=== PATIENT | female | born 1950 | race Two or more races ===

== ENCOUNTER → 2017-03-20 | Day surgery (SDC) | payer OTHER ==
--- NOTE | 2017-03-21 10:29 | SPEC ---
DATE OF OPERATION: 03/20/2017 PREOPERATIVE DIAGNOSIS: Abnormal left mammography. POSTOPERATIVE DIAGNOSIS: Abnormal left mammography. PROCEDURE PERFORMED: Left breast stereotactic needle biopsy with clip. SURGEON: Hilaria Montgomery MD ANESTHESIA: Local. COMPLICATIONS: None. DISPOSITION: Stable at the end of the procedure. INDICATIONS FOR PROCEDURE: The patient underwent a routine screening mammography that noted a cluster of microcalcifications in the left subareolar breast. My recommendation was for a needle biopsy. The procedure was discussed with her and all of her questions answered. DESCRIPTION OF PROCEDURE: The patient was brought to [facility] [place] and laid prone on the OR table. Using a lateral approach, the calcifications in the subareolar left breast were identified. A sterile prep was obtained. A target was chosen. There was a positive stroke margin. Using Betadine and 1% lidocaine, a [employer] device was used to take several cores from this area. Specimen radiograph showed the cores with calcifications. A clip was applied on the area. Hemostasis was assured with direct pressure. Steri-Strips were used to close the incision. She tolerated the procedure well and left the breast imaging center in good condition. HILARIA MONTGOMERY M.D. [id number]
--- NOTE | 2017-03-21 16:02 | PATH ---
Surgical Pathology Report Patient Name: BROCK MARQUEZ [facility]. Rec. #: [id number] /Age/Gender: 1950 (Age: 66) / F Account: [id number] Location: [facility] Taken: 03/20/2017 Received: 03/20/2017 Reported: 03/21/2017 Physicians: Hilaria Fernandez M.D. Specimen(s) Received A: LEFT BREAST SPECIMEN WITH CALCIFICATIONS B: LEFT BREAST SPECIMEN WITHOUT CALCIFICATIONS Clinical History Mammographic findings: Microcalcification, suspicious Final Diagnosis A. BREAST, LEFT, WITH CALCIFICATIONS, STEREOTACTIC BIOPSY: DUCTAL CARCINOMA IN SITU (DCIS), SOLID AND CRIBRIFORM TYPE, INTERMEDIATE NUCLEAR GRADE WITH MODERATE NECROSIS AND ASSOCIATED CALCIFICATIONS. B. BREAST, LEFT, WITHOUT CALCIFICATIONS, STITCH AT BIOPSY: FOCAL DCIS, INTERMEDIATE NUCLEAR GRADE WITH ASSOCIATED NECROSIS. Results of ER and KS studies will be reported separately in addendum. Electronically Signed Geetha Joel M.D. Addendum Reported: 03/22/2017 Addendum Diagnosis Results of ER and KS studies performed on block A at [facility] are as follows: ER (clone [id number] mouse monoclonal antibody by Leica): 100 % nuclear staining with strong intensity (Positive). KS (clone16 mouse monoclonal antibody by Leica): ~20 % nuclear staining with moderate to weak intensity (Positive). Positive and negative controls (internal if applicable) show appropriate results. Formalin fixation and cold ischemic times are within current ASCO/CAP recommendations for ER, KS and Her2 testing. Geetha Joel M.D. Gross Description A. Received in formalin labeled "left breast with calcification," are 4 rosario-yellow, cylindrical portions of fibroadipose tissue ranging from 2.1-2.5 cm in length and averaging 0.3 cm in diameter. The specimens are submitted in toto in one cassette. B. Received in formalin labeled "left breast without calcifications," are 4 rosario-yellow, cylindrical portions of fibroadipose tissue ranging from 1.2-2.2 cm in length and averaging 0.2 cm in diameter. The specimens are submitted in toto in one cassette. Time to formalin fixation: 5 minutes Total formalin fixation time: approximately 8 hours. 03/20/201703/20/2017
== END | disposition home or self-care (01) ==
LOC: FMAMMOTONE 08:51
PROVIDERS: ATTEND Surgery
PROC: 0HBU3ZX Excision of Left Breast, Percutaneous Approach, Diagnostic (ICD-10-PCS; principal; 2017-03-20)
DX: D05.12 Intraductal carcinoma in situ of left breast (principal); N64.1 Fat necrosis of breast; N64.89 Other specified disorders of breast
CPT/HCPCS: 19081; 88305-TC; 88342-TC

== ENCOUNTER 2017-05-06 04:56 | Day surgery (SDC) | payer OTHER ==
[2017-05-03 08:57] VITALS: BMI 24.7
[2017-05-06] MEDS ORDERED: MIDAZOLAM HCL 2 MG/2 ML SINGLE DOSE VIAL ONE ×3 (11:30→12:03)
[2017-05-06] MEDS ORDERED: ceFAZolin SODIUM 1 GM VIAL IVPB ONE (12:00)
[2017-05-06] MEDS ORDERED: KETOROLAC TROMETHAMINE 30 MG/1 ML VIAL ONE (12:00)
[2017-05-06] MEDS ORDERED: ceFAZolin SODIUM 1 GM VIAL ONE (12:00)
[2017-05-06] MEDS ORDERED: LIDOCAINE HCL 1%, 10 MG/ML (20ML VIAL) INF ONE (12:06)
[2017-05-06] MEDS ORDERED: ONDANSETRON 4 MG/2 ML VIAL IVPUSH PRN (12:41)
[2017-05-06] MEDS ORDERED: oxyCODONE HCL 5 MG TABLET PO PRN (12:41)
[2017-05-06] MEDS ORDERED: PROMETHAZINE HCL 25 MG/1 ML VIAL IVPUSH PRN (12:41)
--- NOTE | 2017-05-06 12:41 | HP ---
History & Physical Update - History History: No Change - Physical Physical: No Change - Assessment Assessment: No Change - Plan Plan: No Change
[2017-05-06] MEDS ORDERED: LACTATED RINGERS SOLUTION 1,000 ML IV SCH (12:45)
[2017-05-06 15:12] VITALS: TEMP 97.8
[2017-05-06 17:31] VITALS: BP 122/70; PULSE 71
--- NOTE | 2017-05-06 21:44 | OP ---
DATE OF OPERATION: 05/06/2017 PREOPERATIVE DIAGNOSIS: Left breast ductal carcinoma in situ. POSTOPERATIVE DIAGNOSIS: Left breast ductal carcinoma in situ. PROCEDURE: Left breast wide localized lumpectomy. SURGEON: Hilaria Fernandez MD ANESTHESIA: Local and IV sedation. ESTIMATED BLOOD LOSS: Minimal. COMPLICATIONS: None. This was a sterile procedure. INDICATION FOR PROCEDURE: Patient had a needle biopsy that revealed DCIS. My recommendation was a lumpectomy. The procedure was discussed and all of her questions answered. PROCEDURE IN DETAIL: Patient was brought to [facility] in [place] and taken down to Breast Imaging where a wire was used to localize a clip in the upper, slightly retroareolar left breast. She was then brought into the operating room, and after IV sedation and IV antibiotics, the left breast was prepped and draped in usual sterile fashion. The area in the upper and retroareolar left breast was anesthetized with 1% lidocaine. A periareolar incision was made in the upper part of the left breast, and a wire was used as a guide to get down to the area of interest. This was excised en bloc, tagged with a long stitch lateral, short stitch superior. I felt that I was close anteriorly which was the tissue behind the nipple. Therefore, I took a new anterior margin with a stitch at the old margin. This was sent to Pathology for permanent section. Hemostasis was assured with electrocautery. The parenchyma approximated with interrupted 2-0 Vicryl. Skin approximated with interrupted 3-0 Vicryl and running 4-0 Prolene. A sterile dressing with Tegaderm and 4 x 4's applied. Specimen radiograph showed the clip and wire to be intact within the specimen. This was sent to Pathology for permanent section. Tegan [id number]
--- NOTE | 2017-05-10 16:14 | PATH ---
Surgical Pathology Report Patient Name: BROCK MARQUEZ [facility]. Rec. #: [id number] /Age/Gender: 1950 (Age: 66) / F Account: [id number] Location: AMBULATORY SURG Taken: 05/06/2017 Received: 05/06/2017 Reported: 05/10/2017 Physicians: Hilaria Fernandez M.D. Specimen(s) Received A: LEFT BREAST B: LEFT BREAST NEW ANTERIOR MARGIN Clinical History DCIS Final Diagnosis A. BREAST, LEFT, LUMPECTOMY: INVASIVE DUCTAL CARCINOMA, MODERATELY DIFFERENTIATED (TUBULE SCORE: 3/3, NUCLEAR GRADE: 2/3, MITOTIC SCORE: 1/3; TOTAL CISCO SCORE: 6/9). INVASIVE CARCINOMA MEASURES 6 MM IN GREATEST DIMENSION, MICROSCOPICALLY. EXTENSIVE DUCTAL CARCINOMA IN SITU (DCIS), SOLID, CRIBRIFORM, AND PAPILLARY TYPES, INTERMEDIATE TO HIGH NUCLEAR GRADE WITH MODERATE NECROSIS AND ASSOCIATED CALCIFICATIONS. NO LYMPHOVASCULAR INVASION IDENTIFIED. SURGICAL MARGINS ARE UNINVOLVED BY CARCINOMA; INVASIVE CARCINOMA IS AT 2 MM AND DCIS AT 3 MM FROM THE CLOSEST LATERAL MARGIN. REMAINDER OF THE BREAST TISSUE SHOWS ATYPICAL AND USUAL DUCTAL HYPERPLASIA IN A BACKGROUND OF PROLIFERATIVE FIBROCYSTIC CHANGES INCLUDING STROMAL FIBROSIS, MICROCYST FORMATION, COLUMNAR CELL CHANGES, AND SCLEROSING ADENOSIS. PRIOR BIOPSY SITE CHANGES ARE PRESENT. PATHOLOGIC STAGE (PTNM): PT1b PNx. SEE ALSO INVASIVE CARCINOMA CASE SUMMARY BELOW. B. BREAST, LEFT, NEW ANTERIOR MARGIN, EXCISION: FOCAL ATYPICAL DUCTAL HYPERPLASIA IN A BACKGROUND OF FIBROCYSTIC CHANGES INCLUDING STROMAL FIBROSIS AND MICROCYST FORMATION. Comment: Immunohistochemical stains performed and interpreted at [facility] show the invasive carcinoma is positive for CK7, while negative for p63 and smooth muscle myosin heavy chain (SMM-HC). Comments Breast Invasive Carcinoma: Surgical Pathology Case Summary (Based on AJCC TNM 8 th edition) Procedure _X_ Excision (less than total mastectomy) Specimen Laterality _X_ Left Tumor Size _X_ Greatest dimension of largest invasive focus >1 mm (specify exact measurement) (millimeters): 6 mm Histologic Type _X_ Invasive carcinoma of no special type (ductal, not otherwise specified) Histologic Grade (Cisco Histologic Score) Glandular (Acinar)/Tubular Differentiation _X_ Score 3 (<10% of tumor area forming glandular/tubular structures) Nuclear Pleomorphism _X_ Score 2 Mitotic Rate _X_ Score 1 Overall Grade _X_ Grade 2 (scores of 6) Tumor Focality _X_ Single focus of invasive carcinoma Ductal Carcinoma In Situ (DCIS) _X_ DCIS is present in specimen _X_ Positive for EIC Margins Invasive Carcinoma Margins _X_ Uninvolved by invasive carcinoma Distance from closest margin (millimeters): 3 mm Closest margin: Lateral DCIS Margins _X_ Uninvolved by DCIS Distance from closest margin (millimeters): 2 mm Closest margin: Lateral Regional Lymph Nodes _X_ No lymph nodes submitted or found Treatment Effect _X_ No known presurgical therapy Lymphovascular Invasion _X_ Not identified Pathologic Stage Classification (pTNM, AJCC 8th Edition) Primary Tumor (Invasive Carcinoma) (pT) _X_ pT1b: Tumor >5 mm but =10 mm in greatest dimension Regional Lymph Nodes (pN) Category (pN) _X_ pNX: Regional lymph nodes cannot be assessed Biomarker Studies Pending and will be reported as an addendum. Electronically Signed Cecily Oliva M.D. Addendum Reported: 05/15/2017 Addendum Diagnosis Results of Estrogen Receptor (ER) and Progesterone Receptor (WA) studies performed on block "A3" at [facility] are as follows: ER (clone [id number] mouse monoclonal antibody by Leica): 99 % nuclear staining with strong intensity (Positive). WA (clone16 mouse monoclonal antibody by Leica): 30% nuclear staining with moderate to strong intensity (Positive). Results of Her2 (IHC) & Ki-67 studies performed on block "A3" at [place], [place] ([id number]) are as follows: Her2 IHC (EP3 from [employer], formerly known as [id number], using [employer] Polymer Refine detection kit): 1+ (Negative) Ki-67: ~5% (Low proliferative index) Positive and negative controls (internal if applicable) show appropriate results. Formalin fixation and cold ischemic times are within current ASCO/CAP recommendations for ER, WA and Her2 testing. Cecily Oliva M.D. Gross Description A. Received fresh [employer]uGrid, labeled with the patient's name and indicated on the requisition to be left breast lumpectomy, is a 5.6 x 5.3 x 1.6 cm. rosario-yellow, irregular, portion of fibroadipose tissue with a needle localization wire present. There is a short suture marking the superior aspect and a long suture marking the lateral aspect, per the surgeon. There is no skin or nipple present. The specimen is inked as follows: superior and lateral blue; inferior green; medial yellow; anterior red; deep black. The specimen is serially sectioned from superior to inferior. Sectioning reveals abundant dense, white, focally firm fibrous tissue. No definitive mass is identified. A [place] metallic biopsy clip is identified. [employer] sections are submitted in 13 cassettes as follows: 1-2-one full thickness bisected section from area biopsy clip (1-anterior, deep and lateral margins; 2-anterior, deep and medial margins); 3-additional fibrous tissue surrounding biopsy clip with anterior, deep and lateral margins; 9-05-[id number] fibrous tissue sequentially submitted from superior to inferior (one bisected section each in cassettes 4/5, 6/7, 8/9, /11); 12-superior margin; 13-inferior margin. Total formalin fixation time: Approximately 10 hours B. Received in formalin labeled "breast new anterior margin," is a 3.1 x 2.7 x 0.6 cm irregular portion of fibroadipose tissue with a suture marking the biopsy cavity side, per the surgeon. The new margin is inked blue and the specimen is serially sectioned. The specimen is entirely and sequentially submitted in 4 cassettes. 05/06/2017 [facility]05/06/2017
== END 2017-05-06 17:36 | disposition home or self-care (01) ==
LOC: JASUSAT 04:56
PROVIDERS: ATTEND Surgery
PROC: 0HBU0ZZ Excision of Left Breast, Open Approach (ICD-10-PCS; principal; 2017-05-06 10:30)
DX: D05.12 Intraductal carcinoma in situ of left breast (principal)
CPT/HCPCS: 19281; 88307-TC; 88341-TC; 88342-TC; 94760

== ENCOUNTER 2017-05-08 14:55 | Emergency (ER) | payer OTHER ==
[2017-05-08 15:12] VITALS: BP 155/85; PULSE 73; TEMP 98.3; BMI 24.7
[2017-05-08] MEDS ORDERED: SODIUM CHLORIDE 0.9% 1000 ML INFUS.BAG IV ONE (15:14)
[2017-05-08] MEDS ORDERED: ONDANSETRON *ODT* 4 MG TABLET SL ONE (15:14)
--- NOTE | 2017-05-08 15:15 | PDOC ---
Rapid Medical Evaluation Chief Complaint: Weakness Time Seen by Provider: 05/08/17 15:09 Medical Evaluation: Allergies Allergy/AdvReac Type Severity Reaction Status Date / Time No Known Drug Allergies Allergy Verified 05/06/17 08:43 05/08/17 15:10 I have performed a brief in-person evaluation of this patient. The patient presents with a chief complaint of: hx of breast cancer, lumpectomy Saturday, c/o nausea, dizziness, headache, since yesterday, no vomiting, diarrhea , cough, runny nose, no sick contacts, denies fever, took tylenol at 9;30 am, has hx of migraines, this is "worst headache of her life" , denies chest pain, SOB Pertinent physical exam findings: uncomfortable appearing I have ordered the following: labs, flu swab The patient will proceed to the ED for further evaluation. Discharge Disposition - Diagnosis Headache - Referrals - Patient Instructions - Post Discharge Activity
[2017-05-08] MEDS ORDERED: ONDANSETRON *ODT* 4 MG TABLET ONE ×2 (15:28→21:13)
[2017-05-08 15:32] LABS: BASO % 0.3 % (0-2.0); EOS % 0.2 % (0-4.5); HEMATOCRIT 39.8 % (32.4-45.2); HEMOGLOBIN 13.5 GM/dL (10.7-15.3); LYMPH % 15.3 % (8-40); MCH 29.9 pg (25.7-33.7); MCHC 34.1 g/dl (32.0-36.0); MEAN CELL VOLUME 87.7 fl (80-96); MEAN PLT VOLUME 10.3 fl (7.5-11.1); NEUT % 79.2 % (42.8-82.8); PLATELET COUNT 160 K/MM3 (134-434); RBC 4.54 M/mm3 (3.60-5.2); RDW 12.3 % (11.6-15.6); WHITE BLOOD COUNT 9.5 K/mm3 (4.0-10.0)
[2017-05-08 16:21] LABS: ALK PHOS 58 U/L (45-117); ANION GAP 12 (8-16); BLOOD UREA NITROGEN 13 mg/dL (7-18); CALCIUM 8.9 mg/dL (8.5-10.1); CHLORIDE 105 mmol/L (98-107); CO2 22 mmol/L (21-32); CREATININE 0.9 mg/dL (0.55-1.02); GLUCOSE,RANDOM 101 mg/dL (74-106); POTASSIUM 3.8 mmol/L (3.5-5.1); SGOT/AST 20 U/L (15-37); SGPT/ALT 31 U/L (12-78); SODIUM 139 mmol/L (136-145); TOT PROT 7.8 g/dl (6.4-8.2)
--- NOTE | 2017-05-08 19:41 | PDOC ---
History of Present Illness - General Chief Complaint: Weakness Stated Complaint: (POST-OP) NAUSEA, HEADACHES Time Seen by Provider: 05/08/17 15:09 - History of Present Illness Initial Comments: 05/08/17 22:07 66 year old female c/o nausea, headache and dizziness s/p left breast lumpectomy 2 days ago. reports that she is unable to eat or drink since surgery due to extreme nausea. patient has a past medical history of HTN, vertigo and migraine headaches. denies chest pain, abdominal pain. Diaphoresis, headache is similar to previous migraine headache. Past History - Past Medical History Allergies/Adverse Reactions: Allergies Allergy/AdvReac Type Severity Reaction Status Date / Time No Known Drug Allergies Allergy Verified 05/08/17 15:12 Home Medications: Ambulatory Orders Esomeprazole Magnesium [Nexium 24Hr] 20 mg PO DAILY 05/03/17 Valsartan [Diovan] 80 mg PO DAILY 05/03/17 Acetaminophen W/ Codeine #3 [Tylenol # 3 -] 1 tab PO Q6H PRN #14 tablet MDD pills 05/06/17 COPD: No GI Disorders: Yes (GERD) HTN: Yes - Suicide/Smoking/Psychosocial Hx Smoking History: Never smoked Have you smoked in the past 12 months: No Information on smoking cessation initiated: No Hx Alcohol Use: No Drug/Substance Use Hx: No Substance Use Type: None Hx Substance Use Treatment: No Review of Systems - Review of Systems Able to Perform ROS?: Yes Is the patient limited [place] proficient: No Constitutional: No: Symptoms Reported, See HPI, Chills, Diaphoresis, Fever, Loss of Appetite, Malaise, Night Sweats, Weakness, Weight Stable, Unintentional Wgt. Loss, Unexplained wgt Loss, Other ABD/GI: Yes: Nausea, Vomiting. No: Symptoms Reported, See HPI, Abdominal Distended, Abd. Pain w/ defecation, Blood Streaked Bowels, Constipated, Diarrhea , Difficulty Swallowing, Poor Appetite, Poor Fluid Intake, Rectal Bleeding, Indigestion, Abdominal cramping, Tarry Stools, Other Neurological: Yes: Headache, Dizziness. No: Symptoms reported, See HPI, Numbness, Paresthesia, Pre-Existing Deficit, Seizure, Tingling, Tremors, Weakness, Unsteady Gait, Ataxia, Other *Physical Exam - Vital Signs Last Vital Signs Temp Pulse Resp BP Pulse Ox 98.3 F 73 18 155/85 100 05/08/17 15:10 05/08/17 15:10 05/08/17 15:10 05/08/17 15:10 05/08/17 15:10 - Physical Exam General Appearance: Yes: Appropriately Dressed Respiratory/Chest: positive: Lungs Clear, Normal Breath Sounds Extremity: positive: Normal Capillary Refill, Normal Inspection Neurologic: positive: insurance salesperson II-XII NML intact, Fully Oriented, Alert, Normal Mood/ Affect, Normal Response, Motor Strength 5/5, Other (+ [place]ha [place]) ED Treatment Course - LABORATORY CBC & Chemistry Diagram: 05/08/17 15:25 05/08/17 15:25 - ADDITIONAL ORDERS Additional order review: Laboratory Results 05/08/17 15:25 Sodium 139 Potassium 3.8 Chloride 105 Carbon Dioxide 22 Anion Gap 12 BUN 13 Creatinine 0.9 Creat Clearance w eGFR > 60 Random Glucose 101 Calcium 8.9 Total Bilirubin 1.0 AST 20 ALT 31 Alkaline Phosphatase 58 Total Protein 7.8 Albumin 4.0 05/08/17 15:25 RBC 4.54 MCV 87.7 MCHC 34.1 RDW 12.3 MPV 10.3 Neutrophils % 79.2 D Lymphocytes % 15.3 D Monocytes % 5.0 Eosinophils % 0.2 D Basophils % 0.3 - Medications Given in the ED: ED Medications Discontinued Medications Generic Name Dose Route Start Last Admin Trade Name Eric PRN Reason Stop Dose Admin Ondansetron HCl 4 mg 05/08/17 15:14 05/08/17 15:29 Zofran Odt - SL 05/08/17 15:15 4 mg ONCE ONE Administration *DC/Admit/Observation/Transfer Diagnosis at time of Disposition: Vertigo Headache Qualifiers: Headache type: tension-type Headache chronicity pattern: acute headache Intractability: not intractable Qualified Code(s): G44.209 - Tension-type headache, unspecified, not intractable - Discharge Dispostion Disposition: HOME - Referrals Referrals: Jess Espino [Primary Care Provider] - Call tomorrow - Patient Instructions Printed Discharge Instructions: Migraine Headaches (Alternative Therapy) Additional Instructions: drink plenty of fluids. take tylenol/ ibuprofen every 6 hours as needed for pain follow up with your doctor as soon as possible. - Post Discharge Activity
[2017-05-08] MEDS ORDERED: SODIUM CHLORIDE 1,000 ML IV STA (20:14)
[2017-05-08] MEDS ORDERED: METOCLOPRAMIDE HCL INJECTION 10 MG/2 ML VIAL IVPUSH ONE (20:14)
[2017-05-08] MEDS ORDERED: MECLIZINE HCL 25 MG TABLET (FP) PO ONE (20:21)
[2017-05-08 20:28] LABS: URINE APPEARANCE CLEAR; URINE BILIRUBIN NEGATIVE (NEGATIVE); URINE BLOOD NEGATIVE (NEGATIVE); URINE COLOR STRAW; URINE GLUCOSE (UA) NEGATIVE (NEGATIVE); URINE KETONE 1+ (NEGATIVE); URINE LEUK ESTERASE NEGATIVE (NEGATIVE); URINE NITRITE NEGATIVE (NEGATIVE); URINE PROTEIN NEGATIVE (NEGATIVE); URINE UROBILINOGEN NEGATIVE mg/dL (0.2-1.0)
--- NOTE | 2017-05-08 20:42 | PDOC ---
*Physical Exam - Vital Signs Last Vital Signs Temp Pulse Resp BP Pulse Ox 98.3 F 73 18 155/85 100 05/08/17 15:10 05/08/17 15:10 05/08/17 15:10 05/08/17 15:10 05/08/17 15:10 ED Treatment Course - LABORATORY CBC & Chemistry Diagram: 05/08/17 15:25 05/08/17 15:25 - ADDITIONAL ORDERS Additional order review: Laboratory Results 05/08/17 05/08/17 20:15 15:25 Sodium 139 Potassium 3.8 Chloride 105 Carbon Dioxide 22 Anion Gap 12 BUN 13 Creatinine 0.9 Creat Clearance w eGFR > 60 Random Glucose 101 Calcium 8.9 Total Bilirubin 1.0 AST 20 ALT 31 Alkaline Phosphatase 58 Total Protein 7.8 Albumin 4.0 Urine Color Straw Urine Appearance Clear Urine pH 6.0 Ur Specific [place] 1.006 Urine Protein Negative Urine Glucose (UA) Negative Urine Ketones 1+ H Urine Blood Negative Urine Nitrite Negative Urine Bilirubin Negative Urine Urobilinogen Negative Ur Leukocyte Esterase Negative 05/08/17 15:25 RBC 4.54 MCV 87.7 MCHC 34.1 RDW 12.3 MPV 10.3 Neutrophils % 79.2 D Lymphocytes % 15.3 D Monocytes % 5.0 Eosinophils % 0.2 D Basophils % 0.3 - Medications Given in the ED: ED Medications Discontinued Medications Generic Name Dose Route Start Last Admin Trade Name Freq PRN Reason Stop Dose Admin Ondansetron HCl 4 mg 05/08/17 15:14 05/08/17 15:29 Zofran Odt - SL 05/08/17 15:15 4 mg ONCE ONE Administration Medical Decision Making - Medical Decision Making 05/08/17 20:42 agree with care from FRANK Lee *DC/Admit/Observation/Transfer Diagnosis at time of Disposition: Headache - Referrals Referrals: Jess Espino [Primary Care Provider] - - Patient Instructions - Post Discharge Activity
[2017-05-08] MEDS ORDERED: MECLIZINE HCL 25 MG TABLET (FP) ONE (21:13)
[2017-05-08] MEDS ORDERED: METOCLOPRAMIDE HCL INJECTION 10 MG/2 ML VIAL ONE (21:13)
[2017-05-08] MEDS ORDERED: ACETAMINOPHEN 325 MG TABLET (FP) ONE (22:33)
[2017-05-08] MEDS ORDERED: ACETAMINOPHEN 325 MG TABLET (FP) PO ONE (22:33)
== END 2017-05-08 22:48 | disposition home or self-care (01) ==
LOC: JER 14:55
PROC: 3E0337Z Introduction of Electrolytic and Water Balance Substance into Peripheral Vein, Percutaneous Approach (ICD-10-PCS; principal; 2017-05-08)
PROC: 3E033GC Introduction of Other Therapeutic Substance into Peripheral Vein, Percutaneous Approach (ICD-10-PCS; 2017-05-08)
DX: G44.209 Tension-type headache, unspecified, not intractable (principal); K21.9 Gastro-esophageal reflux disease without esophagitis; R11.0 Nausea; I10 Essential (primary) hypertension; Z98.890 Other specified postprocedural states; Z85.3 Personal history of malignant neoplasm of breast
CPT/HCPCS: 36415; 80053; 81003; 85025; 99283-25

== ENCOUNTER 2019-05-25 19:02 | Emergency (ER) | payer OTHER ==
[2019-05-25 19:11] VITALS: PULSE 80; BMI 24.7
--- NOTE | 2019-05-25 19:11 | PDOC ---
Rapid Medical Evaluation Medical Evaluation: Allergies Allergy/AdvReac Type Severity Reaction Status Date / Time No Known Drug Allergies Allergy Verified 05/08/17 15:12 I have performed a brief in-person evaluation of this patient. The patient presents with a chief complaint of: C/O dizziness, N/V/D from today ; denies abd pain, fever; hx of vertigo, pre-DM, HTN; took Meclizine but states threw it up Pertinent physical exam findings: In NAD, abdomen soft, ND I have ordered the following: Labs, EKG The patient will proceed to the ED for further evaluation. 05/25/19 19:09
[2019-05-25] MEDS ORDERED: SODIUM CHLORIDE 1,000 ML IV STA (19:12)
--- NOTE | 2019-05-25 21:39 | PDOC ---
History of Present Illness - General Chief Complaint: Lightheaded Stated Complaint: VOMITING Time Seen by Provider: 05/25/19 19:09 - History of Present Illness Initial Comments: Ludmila Costa is a 68 y/o female with PMH significant for hypothyroid, depression, htn, pre-DM, vertigo, presenting today with nausea, vomiting x3-4, diarrhea, lightheadedness (no vertigo) that started 5 hours ago while she was cooking. Denies fever. Denies abdominal pain. Denies sick cnotacts. She had a similar episode in 2018. She took all of her medications today. No change in diet. She last vomited at 6pm and has been unable to tolerate PO or fluids. She tried taking her milantin and meclizine and vomited both. Past History - Past Medical History Allergies/Adverse Reactions: Allergies Allergy/AdvReac Type Severity Reaction Status Date / Time No Known Drug Allergies Allergy Verified 05/25/19 19:11 Home Medications: Ambulatory Orders Esomeprazole Magnesium [Nexium 24Hr] 20 mg PO DAILY 05/09/17 Fluticasone Prop 0.05% Nasal [Flonase -] 1 spray NS DAILY 05/09/17 Gabapentin 600 mg PO DAILY 05/09/17 Hydrochlorothiazide [Hctz -] 12.5 mg PO DAILY 05/09/17 Valsartan [Diovan] 80 mg PO DAILY 05/09/17 COPD: No GI Disorders: Yes (GERD) HTN: Yes - Immunization History Immunization Up to Date: Yes - Psycho Social/Smoking Cessation Hx Smoking History: Never smoked Have you smoked in the past 12 months: No Hx Alcohol Use: No Drug/Substance Use Hx: No Substance Use Type: None Hx Substance Use Treatment: No Review of Systems - Review of Systems Comments:: GENERAL/CONSTITUTIONAL: No fever or chills. No weakness._ HEAD, EYES, EARS, NOSE AND THROAT: No change in vision. No change in hearing. No sore throat._ CARDIOVASCULAR: No chest pain or shortness of breath_ RESPIRATORY: Denies cough, hemoptysis_ GASTROINTESTINAL: Reports nausea, vomiting, diarrhea. GENITOURINARY: No dysuria, frequency, or change in urination._ MUSCULOSKELETAL: No joint or muscle swelling or pain. No neck or back pain._ SKIN: No rash_ NEUROLOGIC: Reports lightheadedness. No headache, vertigo, loss of consciousness , or change in strength/sensation._ ENDOCRINE: No increased thirst. No abnormal weight change_ HEMATOLOGIC/LYMPHATIC: No anemia, easy bleeding, or history of blood clots._ ALLERGIC/IMMUNOLOGIC: No hives or skin allergy._ *Physical Exam - Vital Signs Last Vital Signs Temp Pulse Resp BP Pulse Ox 97.3 F L 80 18 142/89 100 05/25/19 19:09 05/25/19 19:09 05/25/19 19:09 05/25/19 19:09 05/25/19 19:09 - Physical Exam GENERAL: Awake, alert, and oriented to person/place/time, in no acute distress_ HEAD: No signs of trauma, normocephalic, atraumatic _ EYES: PERRLA, EOMI, sclera anicteric, conjunctiva clear_ ENT: Hearing grossly normal, nares patent, oropharynx clear without exudates. No uvular deviation. Dry mucous membranes. NECK: Normal ROM, supple, no lymphadenopathy, JVD, or masses_ LUNGS: No distress, speaks in full sentences, clear to auscultation bilaterally _ HEART: Regular rate and rhythm, normal S1 and S2, no murmurs appreciated, peripheral pulses normal and equal bilaterally._ ABDOMEN: Soft, nontender, normoactive bowel sounds. No guarding, no rebound. No masses_ EXTREMITIES: Normal inspection, Normal range of motion, no edema. No clubbing or cyanosis_ NEUROLOGICAL: Cranial nerves II through XII grossly intact. Normal speech, no focal sensorimotor deficits _ SKIN: Warm, Dry, normal turgor, no rashes or lesions noted_ ED Treatment Course - LABORATORY CBC & Chemistry Diagram: 05/25/19 22:20 05/25/19 22:20 Medical Decision Making - Medical Decision Making 05/25/19 21:39 68F hx of hypothyroid depressino, htn, pre DM, vertigo, presenting with nausea, vomiting, and diarrhea that started today. -cbc, cmp -ekg, trop, cxr -ua, ucx -fluids, zofran 05/25/19 23:51 EKG shows NSR, 85 bpm, no ST elevation, QTc 454, no axis deviation. 05/25/19 23:54 CXR shows no acute intra thoracic pathology. Pt reassessed. Reports feeling unsteady on her feet while walking. Negative for ataxic gait. Will obtain CT head. 05/26/19 00:16 Labs reviewed. Laboratory Last Values WBC 11.9 K/mm3 (4.0-10.0) H 05/25/19 22:20 RBC 4.93 M/mm3 (3.60-5.2) 05/25/19 22:20 Hgb 14.5 GM/dL (10.7-15.3) 05/25/19 22:20 Hct 42.7 % (32.4-45.2) 05/25/19 22:20 MCV 86.6 fl (80-96) 05/25/19 22:20 MCH 29.4 pg (25.7-33.7) 05/25/19 22: MCHC 34.0 g/dl (32.0-36.0) 05/25/19 22:20 RDW 13.0 % (11.6-15.6) 05/25/19 22:20 Plt Count 186 K/MM3 (134-434) 05/25/19 22:20 MPV 10.7 fl (7.5-11.1) 05/25/19 22:20 Absolute Neuts (auto) 10.1 K/mm3 (1.5-8.0) H 05/25/19 22:20 Neutrophils % 84.6 % (42.8-82.8) H 05/25/19 22:20 Lymphocytes % 12.4 % (8-40) 05/25/19 22:20 Monocytes % 2.6 % (3.8-10.2) L 05/25/19 22:20 Eosinophils % 0.0 % (0-4.5) D 05/25/19 22:20 Basophils % 0.4 % (0-2.0) 05/25/19 22:20 Nucleated RBC % 0 % (0-0) 05/25/19 22:20 Sodium 139 mmol/L (136-145) 05/25/19 22:20 Potassium 3.8 mmol/L (3.5-5.1) 05/25/19 22:20 Chloride 103 mmol/L (98-107) 05/25/19 22:20 Carbon Dioxide 25 mmol/L (21-32) 05/25/19 22:20 Anion Gap 11 MMOL/L (8-16) 05/25/19 22:20 BUN 18.8 mg/dL (7-18) H 05/25/19 22:20 Creatinine 1.3 mg/dL (0.55-1.3) 05/25/19 22:20 Est GFR (CKD-EPI)AfAm 48.82 05/25/19 22:20 Est GFR (CKD-EPI)NonAf 42.12 05/25/19 22:20 Random Glucose 115 mg/dL (74-106) H 05/25/19 22:20 Calcium 10.0 mg/dL (8.5-10.1) 05/25/19 22:20 Total Bilirubin 1.0 mg/dL (0.2-1) 05/25/19 22:20 AST 27 U/L (15-37) 05/25/19 22:20 ALT 44 U/L (13-61) 05/25/19 22:20 Alkaline Phosphatase 59 U/L (45-117) 05/25/19 22:20 Creatine Kinase 135 U/L (26-192) 05/25/19 22:20 Troponin I < 0.02 ng/ml (0.00-0.05) 05/25/19 22:20 Total Protein 9.1 g/dl (6.4-8.2) H 05/25/19 22:20 Albumin 4.6 g/dl (3.4-5.0) 05/25/19 22:20 05/26/19 01:40 CT head shows no acute intracranial pathology. Pt reports feeling better. Plan to d/c home with PO fluids and PCP and neuro f/u PRN. All questions answered. Return precautions given. Pt verbalized understanding and agreement with plan. Discharge - Discharge Information Problems reviewed: Yes Clinical Impression/Diagnosis: Nausea vomiting and diarrhea, Lightheaded Condition: Stable Disposition: HOME - Admission No - Follow up/Referral Referrals: Jess Espino [Primary Care Provider] - Jarret Rose MD [Staff Physician] - - Patient Discharge Instructions Patient Printed Discharge Instructions: DI for Vomiting -- Adult Additional Instructions: Please keep yourself hydrated with fluids. If your symptoms do not improve, please f/u with your primary care doctor and your neurologist. If you experience any new, worsening, or concerning symptoms, including severe headache, weakness, blood in the stool or vomit, or any other concerns, please return to the emergency department. - Post Discharge Activity
--- NOTE | 2019-05-25 22:16 | PDOC ---
Documentation entered by Negrita Peter SCRIBE, acting as scribe for Stephanie Lee MD. Stephanie Lee MD: This documentation has been prepared by the luis fernandoibe, Negrita Peter SCRIBE, under my direction and personally reviewed by me in its entirety. I confirm that the documentation accurately reflects all work, treatment, procedures, and medical decision making performed by me. Attending Attestation - Resident Resident Name: Phillip Nova - ED Attending Attestation I have performed the following: I have examined & evaluated the patient, The case was reviewed & discussed with the resident, I agree w/resident's findings & plan, Exceptions are as noted - HPI HPI: 05/25/19 21:53 The patient is a 60-year-old female with a past medical history significant for vertigo, hypothyroidism, depression, HTN, and pre-DM who presents to the emergency department with an acute onset of nausea, vomiting, diarrhea, and lightheadedness about 5 hours prior to arrival while she was cooking. The patient reports she took Mylanta and Meclizine for the symptoms reports she vomited the medication, following she had 3-4 episodes of vomiting. Denies abdominal pain or sick contact. - Physicial Exam PE: 05/26/19 00:44 GENERAL: Well-appearing, well-nourished. No apparent distress. HEENT: Normocephalic, atraumatic. PERRL, EOM intact. NECK: supple, no JVD. CARDIOVASCULAR: Regular rate and rhythm. PULMONARY: Clear to auscultation bilaterally. ABDOMEN: Soft, non-distended, non-tender. EXTREMITIES: No pitting edema. Normal ROM in all four extremities. No gross deformities. SKIN: Warm, dry. No rash NEUROLOGICAL: Alert and oriented, conversant. [place] unsteady but no ataxia or dysmetria. No focal neurological deficits. - Medical Decision Making 05/26/19 01:34 68-year-old female with nausea vomiting and diarrhea that started this afternoon No fever chills no focal abdominal pain, no sick contacts Past surgical history left breast lumpectomy Patient received IV fluids and Zofran 05/26/19 02:19 CAT scan of the head is negative for any acute intracranial pathology Symptoms resolved with IV fluids and Zofran
[2019-05-25] MEDS ORDERED: ONDANSETRON 4 MG/2 ML VIAL IVPUSH ONE (22:30)
[2019-05-25 22:52] VITALS: BP 133/85; TEMP 97.6
[2019-05-25 22:56] LABS: BASO % 0.4 % (0-2.0); HEMATOCRIT 42.7 % (32.4-45.2); HEMOGLOBIN 14.5 GM/dL (10.7-15.3); LYMPH % 12.4 % (8-40); MCH 29.4 pg (25.7-33.7); MEAN CELL VOLUME 86.6 fl (80-96); MEAN PLT VOLUME 10.7 fl (7.5-11.1); MONO % 2.6 % (3.8-10.2); NEUT % 84.6 % (42.8-82.8); PLATELET COUNT 186 K/MM3 (134-434); RBC 4.93 M/mm3 (3.60-5.2); WHITE BLOOD COUNT 11.9 K/mm3 (4.0-10.0)
[2019-05-25 23:49] LABS: ALBUMIN 4.6 g/dl (3.4-5.0); BLOOD UREA NITROGEN 18.8 mg/dL (7-18); CREATININE 1.3 mg/dL (0.55-1.3); POTASSIUM 3.8 mmol/L (3.5-5.1); TOT PROT 9.1 g/dl (6.4-8.2)
[2019-05-26 02:37] LABS: EPI CELLS 0.3 /HPF (0-5/HPF); HYALINE CASTS 15 /lpf (0-8); PH,URINE >= 9.0 (5.0-8.0); URINE APPEARANCE CLEAR; URINE BACTERIA 20.6 /hpf (NEGATIVE); URINE BILIRUBIN NEGATIVE (NEGATIVE); URINE COLOR YELLOW; URINE GLUCOSE (UA) NEGATIVE (NEGATIVE); URINE KETONE TRACE (NEGATIVE); URINE LEUK ESTERASE 2+ (NEGATIVE); URINE NITRITE NEGATIVE (NEGATIVE); URINE PROTEIN TRACE (NEGATIVE); URINE RBC 3 /hpf (0-4); URINE WBC 62 /hpf (0-5)
--- NOTE | 2019-05-26 09:40 | EKG ---
Test Reason : Blood Pressure : / mmHG Vent. Rate : 085 BPM Atrial Rate : 085 BPM P-R Int : 182 ms QRS Dur : 076 ms QT Int : 382 ms P-R-T Axes : 041 018 049 degrees QTc Int : 454 ms POOR DATA QUALITY, INTERPRETATION MAY BE ADVERSELY AFFECTED NORMAL SINUS RHYTHM NORMAL ECG WHEN COMPARED WITH ECG OF 22-APR-2017 09:14, NO SIGNIFICANT CHANGE WAS FOUND Confirmed by Phillip Don MD ([id number]) on 05/26/2019 9:40:03 AM Referred By: Confirmed By:Phillip Don MD
== END 2019-05-26 03:46 | disposition home or self-care (01) ==
LOC: JER 19:02
PROC: 3E0337Z Introduction of Electrolytic and Water Balance Substance into Peripheral Vein, Percutaneous Approach (ICD-10-PCS; principal; 2019-05-25)
PROC: 3E033GC Introduction of Other Therapeutic Substance into Peripheral Vein, Percutaneous Approach (ICD-10-PCS; 2019-05-25)
DX: R42 Dizziness and giddiness (principal); R11.2 Nausea with vomiting, unspecified; R19.7 Diarrhea, unspecified; I10 Essential (primary) hypertension; E03.9 Hypothyroidism, unspecified; R73.03 Prediabetes; F32.9 Major depressive disorder, single episode, unspecified
CPT/HCPCS: 36415; 70450-TC; 71045-TC-FY; 80053; 81003; 82550; 84484; 85025; 93005; 93010; 96361; 96374; 99285-25; J7030

== ENCOUNTER 2024-01-11 01:56 | Inpatient (IN) | payer OTHER ==
[2024-01-11 02:06] VITALS: BMI 24.1
[2024-01-11] MEDS ORDERED: ACETAMINOPHEN INJECTION 100 ML ONE (03:08)
[2024-01-11] MEDS: ACETAMINOPHEN 1000 MG/100 ML BAG IVPB ONE (03:21)
[2024-01-11 03:25] LABS: BASO % 0.2 % (0-2.0); EOS % 0.1 % (0-4.5); HEMATOCRIT 40.3 % (32.4-45.2); HEMOGLOBIN 13.4 GM/dL (10.7-15.3); LYMPH % 7.1 % (8-40); MCH 28.9 pg (25.7-33.7); MCHC 33.2 g/dl (32.0-36.0); MEAN CELL VOLUME 86.9 fl (80-96); MEAN PLT VOLUME 9.7 fl (7.5-11.1); MONO % 6.6 % (3.8-10.2); PLATELET COUNT 152 10^3/uL (134-434); RBC 4.64 M/mm3 (3.60-5.2); RDW 13.2 % (11.6-15.6); WHITE BLOOD COUNT 13.3 K/mm3 (4.0-10.0)
[2024-01-11 03:49] LABS: POTASSIUM 4.1 mmol/L (3.5-5.1)
[2024-01-11 03:51] LABS: CALCIUM 9.2 mg/dL (8.5-10.1)
[2024-01-11 03:52] LABS: ALBUMIN 3.9 g/dl (3.4-5.0); BLOOD UREA NITROGEN 17.1 mg/dL (7-18)
[2024-01-11] MEDS ORDERED: FAMOTIDINE 20 MG/50 ML IVPB 20 MG/50 ML MG IVPB ONE (03:53)
[2024-01-11 03:55] LABS: CREATININE 1.3 mg/dL (0.55-1.3)
[2024-01-11 03:56] LABS: BILIRUBIN,TOTAL 1.5 mg/dL (0.2-1)
[2024-01-11 03:57] LABS: TOT PROT 7.4 g/dl (6.4-8.2)
[2024-01-11] MEDS: FAMOTIDINE 20 MG/50 ML IVPB 20 MG/50 ML MG IVPB ONE (04:01)
[2024-01-11 09:19] LABS: URINE APPEARANCE CLEAR; URINE BILIRUBIN NEGATIVE (NEGATIVE); URINE COLOR YELLOW; URINE GLUCOSE (UA) NEGATIVE (NEGATIVE); URINE KETONE NEGATIVE (NEGATIVE); URINE LEUK ESTERASE NEGATIVE (NEGATIVE); URINE NITRITE NEGATIVE (NEGATIVE); URINE PROTEIN NEGATIVE (NEGATIVE)
[2024-01-11] MEDS ORDERED: CEFTRIAXONE 1 GM/50 ML BAG ONE (11:32)
[2024-01-11] MEDS: CEFTRIAXONE 1,000 MG in DEXTROSE 5%-WATER - 50 ML IVPB ONE (11:44)
[2024-01-11] MEDS ORDERED: ACETAMINOPHEN 1000 MG/100 ML BAG IVPB PRN (12:08)
[2024-01-11] MEDS ORDERED: ACETAMINOPHEN 325 MG TABLET (FP) PO PRN (12:09)
[2024-01-11] MEDS: D5-1/2NS+20 MEQ KCL - 20 MEQ/1,000 ML INFUS.BAG IV SCH (13:05)
[2024-01-11] MEDS ORDERED: ONDANSETRON 4 MG/2 ML VIAL ONE (16:08)
[2024-01-11] MEDS: ONDANSETRON 4 MG/2 ML VIAL IVPUSH ONE (16:18)
[2024-01-11] MEDS ORDERED: HEPARIN NA (PORCINE) 5,000 UNITS/ML 1ML VIAL SQ SCH (22:00)
[2024-01-12] MEDS: CEFTRIAXONE 1 GM in DEXTROSE 5%-WATER - 50 ML IVPB SCH (10:21)
[2024-01-12 10:58] LABS: BASO % 0.4 % (0-2.0); EOS % 3.4 % (0-4.5); HEMATOCRIT 37.5 % (32.4-45.2); HEMOGLOBIN 12.7 GM/dL (10.7-15.3); LYMPH % 24.2 % (8-40); MCH 29.8 pg (25.7-33.7); MCHC 33.8 g/dl (32.0-36.0); MEAN CELL VOLUME 88.2 fl (80-96); MEAN PLT VOLUME 10.5 fl (7.5-11.1); MONO % 8.2 % (3.8-10.2); NEUT % 63.8 % (42.8-82.8); PLATELET COUNT 138 10^3/uL (134-434); RBC 4.25 M/mm3 (3.60-5.2); RDW 13.5 % (11.6-15.6); WHITE BLOOD COUNT 5.2 K/mm3 (4.0-10.0)
[2024-01-12 11:00] LABS: INR 1.11 (0.83-1.09); PROTHROMBIN TIME (PATIENT) 12.5 SEC (9.7-13.0)
[2024-01-12 11:24] LABS: POTASSIUM 4.1 mmol/L (3.5-5.1)
[2024-01-12 11:32] LABS: CALCIUM 8.5 mg/dL (8.5-10.1)
[2024-01-12 11:33] LABS: ALBUMIN 3.5 g/dl (3.4-5.0); BLOOD UREA NITROGEN 8.5 mg/dL (7-18)
[2024-01-12 11:35] LABS: BILIRUBIN,DIRECT 2.2 mg/dL (0.0-0.2)
[2024-01-12 11:36] LABS: CREATININE 1.2 mg/dL (0.55-1.3)
[2024-01-12 11:38] LABS: TOT PROT 6.9 g/dl (6.4-8.2)
[2024-01-12 12:00] LABS: BILIRUBIN,TOTAL 4.4 mg/dL (0.2-1)
[2024-01-12] MEDS: amLODIPine BESYLATE 2.5 MG TABLET (FP) PO SCH (13:55)
[2024-01-12] MEDS: LEVOTHYROXINE NA 50 MCG TABLET (FP) PO SCH (15:09)
[2024-01-13] MEDS ORDERED: INDOMETHACIN 50 MG RECTAL SUPPOSITORY PR ONE (09:08)
[2024-01-13 11:25] LABS: BASO % 0.4 % (0-2.0); EOS % 3.5 % (0-4.5); HEMATOCRIT 38.2 % (32.4-45.2); LYMPH % 30.7 % (8-40); MCH 30.1 pg (25.7-33.7); MEAN CELL VOLUME 88.4 fl (80-96); MEAN PLT VOLUME 10.6 fl (7.5-11.1); MONO % 8.7 % (3.8-10.2); NEUT % 56.7 % (42.8-82.8); PLATELET COUNT 142 10^3/uL (134-434); RBC 4.32 M/mm3 (3.60-5.2); RDW 13.1 % (11.6-15.6); WHITE BLOOD COUNT 5.1 K/mm3 (4.0-10.0)
[2024-01-13 11:28] LABS: INR 1.05 (0.83-1.09); PROTHROMBIN TIME (PATIENT) 12.1 SEC (9.7-13.0)
[2024-01-13 12:03] LABS: POTASSIUM 4.1 mmol/L (3.5-5.1)
[2024-01-13 12:05] LABS: CALCIUM 8.5 mg/dL (8.5-10.1)
[2024-01-13 12:06] LABS: ALBUMIN 3.4 g/dl (3.4-5.0); BLOOD UREA NITROGEN 6.7 mg/dL (7-18)
[2024-01-13 12:11] LABS: TOT PROT 6.8 g/dl (6.4-8.2)
[2024-01-13 12:19] LABS: BILIRUBIN,TOTAL 1.2 mg/dL (0.2-1)
[2024-01-13] MEDS ORDERED: ATORVASTATIN CA 10 MG TABLET (FP) PO SCH (22:00)
[2024-01-13] MEDS: DEXTROSE 5%-0.45% SALINE 1,000 ML IV SCH (22:03)
[2024-01-14] MEDS: cefOXitin SODIUM 2 GM VIAL (RESTRICTED TO ID) IVPB ONE
[2024-01-14] MEDS: ESCITALOPRAM OXALATE 10 MG TABLET PO SCH (09:10)
[2024-01-14 10:42] LABS: POTASSIUM 3.7 mmol/L (3.5-5.1)
[2024-01-14 10:45] LABS: CALCIUM 8.7 mg/dL (8.5-10.1)
[2024-01-14 10:47] LABS: ALBUMIN 3.4 g/dl (3.4-5.0)
[2024-01-14 10:50] LABS: BILIRUBIN,TOTAL 0.9 mg/dL (0.2-1)
[2024-01-14] MEDS ORDERED: HEPARIN NA (PORCINE) 5,000 UNITS/ML 1ML VIAL ONE (10:50)
[2024-01-14] MEDS ORDERED: CEFOXITIN SODIUM 2 GM IVPB ONE (10:50)
[2024-01-14] MEDS ORDERED: BUPIVACAINE HCL/PF 0.25% (2.5MG/ML) 10 ML VIAL ONE ×2 (10:50→13:12)
[2024-01-14 10:52] LABS: TOT PROT 6.8 g/dl (6.4-8.2)
[2024-01-14] MEDS ORDERED: PROPOFOL 20 ML ONE (13:41)
[2024-01-14] MEDS ORDERED: ROCURONIUM BROMIDE 50 MG/5 ML SYRINGE ONE (13:41)
[2024-01-14] MEDS ORDERED: SUCCINYLCHOLINE CHLORIDE 200 MG/10 ML SYRINGE ONE (13:47)
[2024-01-14] MEDS ORDERED: MIDAZOLAM HCL 2 MG/2 ML SINGLE DOSE VIAL ONE (14:01)
[2024-01-14] MEDS: BUPIVACAINE HCL/PF 0.25% (2.5MG/ML) 10 ML VIAL IJ ONE ×2 (14:47)
[2024-01-14] MEDS ORDERED: SUGAMMADEX SODIUM 200 MG/2 ML VIAL ONE (15:35)
[2024-01-14] MEDS ORDERED: oxyCODONE HCL 5 MG TABLET PO PRN (16:15)
[2024-01-14] MEDS ORDERED: ACETAMINOPHEN INJECTION 100 ML ONE (16:21)
[2024-01-14] MEDS: ACETAMINOPHEN 1000 MG/100 ML BAG IVPB SCH (16:23)
[2024-01-14] MEDS: LACTATED RINGERS SOLUTION 1,000 ML IV SCH ×2 (16:24→16:35)
[2024-01-14 18:10] VITALS: RESP 18
[2024-01-15] MEDS: LEVOTHYROXINE NA 50 MCG TABLET (FP) PO SCH (06:21)
[2024-01-15 09:31] LABS: BASO % 0.4 % (0-2.0); EOS % 0.1 % (0-4.5); HEMATOCRIT 33.4 % (32.4-45.2); HEMOGLOBIN 11.3 GM/dL (10.7-15.3); LYMPH % 13.9 % (8-40); MCH 29.8 pg (25.7-33.7); MCHC 33.9 g/dl (32.0-36.0); MEAN CELL VOLUME 87.9 fl (80-96); MEAN PLT VOLUME 10.5 fl (7.5-11.1); MONO % 5.6 % (3.8-10.2); PLATELET COUNT 132 10^3/uL (134-434); RDW 13.3 % (11.6-15.6); WHITE BLOOD COUNT 9.5 K/mm3 (4.0-10.0)
[2024-01-15 10:02] LABS: POTASSIUM 3.8 mmol/L (3.5-5.1)
[2024-01-15 10:11] LABS: CALCIUM 8.5 mg/dL (8.5-10.1)
[2024-01-15 10:12] LABS: BLOOD UREA NITROGEN 10.5 mg/dL (7-18)
[2024-01-15 10:16] LABS: BILIRUBIN,DIRECT 0.3 mg/dL (0.0-0.2); CREATININE 0.9 mg/dL (0.55-1.3)
[2024-01-15 10:17] LABS: BILIRUBIN,TOTAL 0.8 mg/dL (0.2-1)
[2024-01-15] MEDS: CEFTRIAXONE 1 GM in DEXTROSE 5%-WATER - 50 ML IVPB SCH (10:35)
[2024-01-15] MEDS: POLYETHYLENE GLYCOL (HEALTHYLAX) 3350 17 GM PACKET PO SCH (10:36)
[2024-01-15] MEDS: amLODIPine BESYLATE 2.5 MG TABLET (FP) PO SCH (10:36)
[2024-01-15] MEDS: ESCITALOPRAM OXALATE 10 MG TABLET PO SCH (10:36)
[2024-01-15 14:40] VITALS: BP 112/52; PULSE 72; TEMP 99.3
[2024-01-15] MEDS ORDERED: SENNOSIDES 8.8 MG/5 ML SYRUP PO SCH (22:00)
== END 2024-01-15 15:00 | disposition home or self-care (01) | DRG 419 ==
LOC: JER 01:56 → JERBED 11:46 → J6S 16:42
PROVIDERS: ADMIT Internal Medicine; ATTEND Internal Medicine
PROC: 0FT44ZZ Resection of Gallbladder, Percutaneous Endoscopic Approach (ICD-10-PCS; principal; 2024-01-14 16:45)
PROC: BF03YZZ Plain Radiography of Gallbladder and Bile Ducts using Other Contrast (ICD-10-PCS; 2024-01-14 16:45)
DX: K80.00 Calculus of gallbladder with acute cholecystitis without obstruction (principal); I10 Essential (primary) hypertension; E11.9 Type 2 diabetes mellitus without complications; E03.9 Hypothyroidism, unspecified; F41.9 Anxiety disorder, unspecified; K21.9 Gastro-esophageal reflux disease without esophagitis; E78.5 Hyperlipidemia, unspecified; K57.90 Diverticulosis of intestine, part unspecified, without perforation or abscess without bleeding; K29.50 Unspecified chronic gastritis without bleeding; E05.90 Thyrotoxicosis, unspecified without thyrotoxic crisis or storm; K76.0 Fatty (change of) liver, not elsewhere classified; Z85.3 Personal history of malignant neoplasm of breast
CPT/HCPCS: 36415; 71045-TC-FY; 74177-TC; 76000-TC-FY; 76705-TC; 80048; 80053; 80076; 81003; 82248; 83690; 83735; 84484; 85025; 85610; 86850; 86900; 86901; 87086; 88304-TC; 93005; 93010; 94760; 99285-25; J0131; J1644; Q9967

== ENCOUNTER 2024-02-19 13:03 | Inpatient (IN) | payer OTHER ==
[2024-02-19 13:08] VITALS: BMI 23.0
[2024-02-19 14:55] LABS: BASO % 0.4 % (0-2.0); HEMATOCRIT 40.2 % (32.4-45.2); HEMOGLOBIN 13.5 GM/dL (10.7-15.3); LYMPH % 16.8 % (8-40); MCH 29.3 pg (25.7-33.7); MCHC 33.7 g/dl (32.0-36.0); MEAN PLT VOLUME 10.1 fl (7.5-11.1); MONO % 5.3 % (3.8-10.2); NEUT % 76.5 % (42.8-82.8); PLATELET COUNT 170 10^3/uL (134-434); RBC 4.62 M/mm3 (3.60-5.2); RDW 13.2 % (11.6-15.6); WHITE BLOOD COUNT 7.3 K/mm3 (4.0-10.0)
[2024-02-19 15:02] LABS: INR 1.03 (0.83-1.09); PROTHROMBIN TIME (PATIENT) 11.8 SEC (9.7-13.0)
[2024-02-19 15:05] LABS: ACTIVATED PTT 31.2 SECONDS (25.2-36.5)
[2024-02-19 15:11] LABS: BLOOD UREA NITROGEN 11.6 mg/dL (7-18); CALCIUM 9.1 mg/dL (8.5-10.1)
[2024-02-19 15:15] LABS: CREATININE 1.1 mg/dL (0.55-1.3)
[2024-02-19 15:16] LABS: BILIRUBIN,TOTAL 1.1 mg/dL (0.2-1); TOT PROT 7.6 g/dl (6.4-8.2)
[2024-02-19 17:11] LABS: URINE APPEARANCE CLEAR; URINE BILIRUBIN NEGATIVE (NEGATIVE); URINE COLOR YELLOW; URINE GLUCOSE (UA) NEGATIVE (NEGATIVE); URINE KETONE NEGATIVE (NEGATIVE); URINE LEUK ESTERASE NEGATIVE (NEGATIVE); URINE NITRITE NEGATIVE (NEGATIVE); URINE PROTEIN NEGATIVE (NEGATIVE); URINE UROBILINOGEN 0.2 mg/dL (0.2-1.0)
[2024-02-20 00:56] LABS: HIV INTERPRETATION NEGATIVE (NEGATIVE)
[2024-02-20 11:04] LABS: BASO % 0.7 % (0-2.0); EOS % 3.2 % (0-4.5); HEMATOCRIT 38.3 % (32.4-45.2); HEMOGLOBIN 12.6 GM/dL (10.7-15.3); MCH 28.8 pg (25.7-33.7); MCHC 32.9 g/dl (32.0-36.0); MEAN CELL VOLUME 87.5 fl (80-96); MEAN PLT VOLUME 10.6 fl (7.5-11.1); NEUT % 56.1 % (42.8-82.8); PLATELET COUNT 157 10^3/uL (134-434); RBC 4.38 M/mm3 (3.60-5.2); WHITE BLOOD COUNT 5.4 K/mm3 (4.0-10.0)
[2024-02-20 11:08] LABS: INR 1.08 (0.83-1.09); PROTHROMBIN TIME (PATIENT) 12.2 SEC (9.7-13.0)
[2024-02-20 11:18] LABS: POTASSIUM 3.7 mmol/L (3.5-5.1)
[2024-02-20 11:25] LABS: CALCIUM 9.1 mg/dL (8.5-10.1)
[2024-02-20 11:26] LABS: BLOOD UREA NITROGEN 10.8 mg/dL (7-18)
[2024-02-20 11:29] LABS: CREATININE 1.1 mg/dL (0.55-1.3)
[2024-02-20] MEDS: BISACODYL 5 MG TABLET.DR (FP) PO ONE (16:32)
[2024-02-20] MEDS: PEG 3350/NA SULF BICARB CL/KCL 4000 ML SOLN.RECON PO ONE (18:11)
[2024-02-21 10:10] LABS: POTASSIUM 3.6 mmol/L (3.5-5.1)
[2024-02-21 10:12] LABS: BLOOD UREA NITROGEN 10.6 mg/dL (7-18); CALCIUM 9.5 mg/dL (8.5-10.1)
[2024-02-21 10:13] LABS: MAGNESIUM 2.4 mg/dL (1.8-2.4)
[2024-02-21 10:15] LABS: CREATININE 1.1 mg/dL (0.55-1.3); PHOSPHOROUS 3.5 mg/dL (2.5-4.9)
[2024-02-21 11:04] LABS: HEMATOCRIT 40.8 % (32.4-45.2); HEMOGLOBIN 13.9 GM/dL (10.7-15.3); MCH 29.6 pg (25.7-33.7); MCHC 34.1 g/dl (32.0-36.0); MEAN CELL VOLUME 86.8 fl (80-96); MEAN PLT VOLUME 10.8 fl (7.5-11.1); PLATELET COUNT 147 10^3/uL (134-434); RDW 13.3 % (11.6-15.6); WHITE BLOOD COUNT 6.8 K/mm3 (4.0-10.0)
[2024-02-21] MEDS ORDERED: PATIENT'S OWN MEDICATION (NON-FORMULARY) (Telmisartan [Telmisartan] 80 MG Tablet) PO SCH (12:00)
[2024-02-21] MEDS ORDERED: MONTELUKAST NA 10 MG TABLET PO SCH ×3 (12:00→22:00)
[2024-02-21 15:16] VITALS: BP 112/54; TEMP 97.9
[2024-02-21 15:53] VITALS: PULSE 73; RESP 18
[2024-02-21] MEDS: ESCITALOPRAM OXALATE 10 MG TABLET PO SCH (16:20)
[2024-02-21] MEDS: amLODIPine BESYLATE 2.5 MG TABLET (FP) PO SCH (16:21)
[2024-02-21] MEDS ORDERED: ATORVASTATIN CA 20 MG TABLET (FP) PO SCH (22:00)
[2024-02-22] MEDS ORDERED: LEVOTHYROXINE NA 50 MCG TABLET (FP) PO SCH (07:00)
[2024-02-22] MEDS ORDERED: LOSARTAN POTASSIUM 50 MG TABLET PO SCH (10:00)
== END 2024-02-21 16:26 | disposition home or self-care (01) | DRG 379 ==
LOC: JER 13:03 → JERBED 16:57 → J5S 20:55
PROVIDERS: ADMIT Internal Medicine; ATTEND Internal Medicine
PROC: 0DB68ZX Excision of Stomach, Via Natural or Artificial Opening Endoscopic, Diagnostic (ICD-10-PCS; 2024-02-21)
PROC: 0DBE8ZX Excision of Large Intestine, Via Natural or Artificial Opening Endoscopic, Diagnostic (ICD-10-PCS; principal; 2024-02-21 13:30)
DX: K57.91 Diverticulosis of intestine, part unspecified, without perforation or abscess with bleeding (principal); K64.9 Unspecified hemorrhoids; K62.5 Hemorrhage of anus and rectum; I10 Essential (primary) hypertension; E78.5 Hyperlipidemia, unspecified; E11.9 Type 2 diabetes mellitus without complications; K25.3 Acute gastric ulcer without hemorrhage or perforation; E03.9 Hypothyroidism, unspecified; K21.9 Gastro-esophageal reflux disease without esophagitis; F41.8 Other specified anxiety disorders; K44.9 Diaphragmatic hernia without obstruction or gangrene
CPT/HCPCS: 36415; 80048; 80053; 81003; 82272; 82962; 83735; 84100; 85025; 85027; 85610; 85730; 86803; 86850; 86900; 86901; 87086; 87389; 88305-TC; 88342-TC; 93005; 93010; 99285-25